=== PATIENT | male | born 1990 | race African-American/Black ===

== ENCOUNTER 2021-07-26 18:29 | Emergency (ER) | payer BC, OTHER ==
[~2021-07-26] VITALS: Ht 175.3 cm; Wt 130.0 kg
[~2021-07-26 18:29] MED LIST: CARB200T PO; CARB300C PO; CLON0.5T PO; FERR-63 PO; KEPP500 PO; METF-414 PO; TOP100 PO
[2021-07-26] MEDS ORDERED: LORAZEPAM 2MG/ML CPJ IV ONE (19:00)
[2021-07-26 19:44] LABS: BASOPHILS % 0.2 % (0.0-2.0); HEMATOCRIT. 38.5 % (42.0-52.0); HEMOGLOBIN. 12.5 g/dL (14.0-18.0); LYMPHOCYTES % 28.8 % (20.0-50.0); MEAN CORPUSCULAR HEMOGLOBIN 26.9 pg (28.0-32.0); MEAN CORPUSCULAR VOLUME 82.7 fL (80.0-94.0); MEAN PLATELET VOLUME 7.6 fl (7.4-10.4); MONOCYTES % 8.6 % (2.0-8.0); NEUTROPHILS % 61.4 % (40.0-76.0); PLATELET 258 x1000/uL (130-400); RED BLOOD CELL COUNT 4.66 mill/uL (4.7-6.1); RED CELL DISTRIBUTION WIDTH 15.9 % (11.6-14.6)
[2021-07-26 19:50] LABS: CHLORIDE 110 mEq/L (98-107)
[2021-07-26 19:54] LABS: ETHANOL BLOOD < 10 mg/dL
[2021-07-26 20:39] LABS: CLARITY URINE CLEAR (CLEAR); COLOR URINE YELLOW (YELLOW); KETONES URINE NEGATIVE (NEGATIVE); LEUKOCYTE ESTERASE URINE NEGATIVE (NEGATIVE); NITRITE URINE NEGATIVE (NEGATIVE); OCCULT BLOOD URINE 1+ (NEGATIVE); PH URINE 6.5 (4.5-8.0); PROTEIN URINE 1+ (NEGATIVE); UROBILINOGEN URINE 0.2 E.U./dL (0.2-1.0)
[2021-07-26 20:55] LABS: *BARBITURATES SCREEN URINE NEGATIVE (NEGATIVE); *BENZODIAZEPINES SCREEN URINE PRESUMTIVE POSITIVE (NEGATIVE); *COCAINE SCREEN URINE NEGATIVE (NEGATIVE); METHADONE URINE SCREEN NEGATIVE (NEGATIVE); OPIATES URINE SCREEN NEGATIVE (NEGATIVE)
[2021-07-26 20:56] LABS: *AMPHETAMINES SCREEN URINE NEGATIVE (NEGATIVE); CANNABINOID URINE SCREEN NEGATIVE (NEGATIVE); PHENCYCLIDINE URINE SCREEN NEGATIVE (NEGATIVE)
[2021-07-26 22:08] VITALS: BP 124/86
== END 2021-07-26 22:09 | disposition home or self-care (01) ==
LOC: ER 18:29
DX: G40.909 Epilepsy, unspecified, not intractable, without status epilepticus (principal); F84.0 Autistic disorder; R62.50 Unspecified lack of expected normal physiological development in childhood
CPT/HCPCS: 36415; 70450; 80053; 80305; 80320; 81003; 85025; 93005; 99285; J2060; G0480

== ENCOUNTER 2023-11-07 08:05 | Inpatient (IN) | payer BC, OTHER ==
[~2023-11-07] VITALS: Ht 175.3 cm; Wt 26.8 kg
[2023-11-07] MEDS: CARBAMAZEPINE 200MG TABLET PO SCH ×2 (09:00→20:16)
[2023-11-07] MEDS ORDERED: LEVETIRACETAM 1000MG PREMIX 100 ML IV ONE (09:00)
[2023-11-07] MEDS ORDERED: LORAZEPAM 2MG/ML INJ IM ONE (09:15)
[2023-11-07 11:24] LABS: BASOPHILS % 0.6 % (0.0-2.0); DIFFERENTIAL COMMENT 0; EOSINOPHILS % 0.9 % (0.0-5.0); HEMATOCRIT. 37.4 % (42.0-52.0); HEMOGLOBIN. 11.2 g/dL (14.0-18.0); LYMPHOCYTES % 43.4 % (20.0-50.0); MEAN CORPUSCULAR HEMOGLOBIN 23.9 pg (28.0-32.0); MEAN CORPUSCULAR HGB CONC 29.9 g/dL (31.0-37.0); MEAN CORPUSCULAR VOLUME 79.9 fL (80.0-94.0); MEAN PLATELET VOLUME 8.2 fl (7.4-10.4); MONOCYTES % 5.8 % (2.0-8.0); NEUTROPHILS % 49.3 % (40.0-76.0); PLATELET 252 x1000/uL (130-400); RED BLOOD CELL COUNT 4.67 mill/uL (4.7-6.1); RED CELL DISTRIBUTION WIDTH 18.6 % (11.6-14.6); WHITE BLOOD COUNT 5.4 x1000/uL (4.5-11.0)
[2023-11-07 11:37] LABS: ALANINE AMINOTRANSFERASE 11 IU/L (10-49); ALBUMIN 4.4 g/dL (3.2-4.8); ASPARTATE AMINOTRANSFERASE 25 IU/L (<34); BILIRUBIN TOTAL < 0.2 mg/dL (0.1-1.0); CALCIUM 8.8 mg/dL (8.7-10.4); CARBON DIOXIDE 18 mEq/L (21-32); CHLORIDE 113 mEq/L (98-107); CREATININE 0.8 mg/dL (0.6-1.3); GLUCOSE 75 mg/dL (70-105); POTASSIUM 5.6 mEq/L (3.5-5.1); PROTEIN TOTAL 8.4 g/dL (6.0-8.3); SODIUM 141 mEq/L (136-145); UREA NITROGEN BLOOD 18 mg/dL (9-23)
[2023-11-07 11:39] LABS: ETHANOL BLOOD < 10 mg/dL (<10)
[2023-11-07 12:36] LABS: CLARITY URINE CLEAR (CLEAR); COLOR URINE YELLOW (YELLOW); GLUCOSE URINE NEGATIVE (NEGATIVE); KETONES URINE NEGATIVE (NEGATIVE); LEUKOCYTE ESTERASE URINE NEGATIVE (NEGATIVE); NITRITE URINE NEGATIVE (NEGATIVE); OCCULT BLOOD URINE NEGATIVE (NEGATIVE); PROTEIN URINE NEGATIVE (NEGATIVE); SPECIFIC GRAVITY URINE 1.027 (1.005-1.030); UROBILINOGEN URINE 0.2 E.U./dL (0.2-1.0)
[2023-11-07 14:17] LABS: *AMPHETAMINES SCREEN URINE NEGATIVE (NEGATIVE); *BARBITURATES SCREEN URINE NEGATIVE (NEGATIVE); *BENZODIAZEPINES SCREEN URINE PRESUMPTIVE POSITIVE (NEGATIVE); *COCAINE SCREEN URINE NEGATIVE (NEGATIVE)
[2023-11-07 14:18] LABS: CANNABINOID URINE SCREEN NEGATIVE (NEGATIVE); ECSTASY MDMA SCREEN URINE NEGATIVE (NEGATIVE); METHADONE URINE SCREEN NEGATIVE (NEGATIVE); OPIATES URINE SCREEN NEGATIVE (NEGATIVE); PHENCYCLIDINE URINE SCREEN NEGATIVE (NEGATIVE)
[2023-11-07] MEDS ORDERED: GUAIFENESIN 200MG/10ML SUGAR FREE UDC PO PRN (15:45)
[2023-11-07] MEDS ORDERED: ACETAMINOPHEN 325MG TABLET PO PRN (15:45)
[2023-11-07] MEDS ORDERED: DOCUSATE SODIUM 100MG CAPSULE PO PRN (15:45)
[2023-11-07] MEDS ORDERED: LORAZEPAM 1MG TABLET PO PRN (15:45)
[2023-11-07] MEDS ORDERED: TRAMADOL 50MG TABLET PO PRN (15:45)
[2023-11-07] MEDS ORDERED: SODIUM POLYSTYRENE SULFONATE 15 G/60 ML BOT PO NR (15:45)
[2023-11-07] MEDS ORDERED: ONDANSETRON HCL 4MG/2ML INJ IV PRN (15:45)
[2023-11-07] MEDS ORDERED: NALOXONE HCL 0.4MG/ML VIAL IV PRN (16:00)
[2023-11-07 17:00] VITALS: BP 137/81; PULSE 75; RESP 18; TEMP 98.2
[2023-11-07] MEDS ORDERED: APIX5TAB MT (17:41)
[2023-11-07] MEDS ORDERED: CENO50TA PO (17:41)
[2023-11-07] MEDS: SODIUM CHLORIDE 0.45% 1,000 ML IV SCH (18:38)
[2023-11-07] MEDS ORDERED: CLONAZEPAM 0.5MG TABLET PO SCH (19:00)
[2023-11-07] MEDS ORDERED: CLOB20TA15 PO (19:28)
[2023-11-07 20:00] VITALS: BP 144/90; PULSE 70; RESP 20; TEMP 98.4
[2023-11-07] MEDS: LEVETIRACETAM 500MG TABLET PO SCH (20:15)
[2023-11-07] MEDS: APIXABAN 5 MG TABLET PO SCH (20:15)
[2023-11-07] MEDS: FERROUS SULFATE 325MG TABLET PO SCH (20:16)
[2023-11-07] MEDS: METFORMIN HCL 500MG TABLET PO SCH (20:17)
[2023-11-07] MEDS: TOPIRAMATE 25MG TABLET PO SCH (23:03)
[2023-11-07] MEDS: TOPIRAMATE 100MG TABLET PO SCH (23:03)
[2023-11-08] VITALS: BP 149/95; PULSE 79; RESP 18; TEMP 97.3
[2023-11-08 01:38] LABS: CREATINE KINASE 57 IU/L (46-171)
[2023-11-08 04:00] VITALS: BP 141/91; PULSE 71; RESP 20; TEMP 97
[2023-11-08] MEDS: SODIUM CHLORIDE 0.45% 1,000 ML IV SCH ×2 (05:28→18:25)
[2023-11-08 07:59] LABS: ALANINE AMINOTRANSFERASE 9 IU/L (10-49); ASPARTATE AMINOTRANSFERASE 16 IU/L (<34); BILIRUBIN TOTAL 0.3 mg/dL (0.1-1.0); CALCIUM 8.8 mg/dL (8.7-10.4); CARBON DIOXIDE 24 mEq/L (21-32); CHLORIDE 106 mEq/L (98-107); CHOLESTEROL 217 mg/dL (<200); CREATINE KINASE 45 IU/L (46-171); CREATININE 0.9 mg/dL (0.6-1.3); GLUCOSE 80 mg/dL (70-105); HDL CHOLESTEROL 39 mg/dL (>55); LDL CHOLESTEROL 147 mg/dL (5-100); POTASSIUM 4.1 mEq/L (3.5-5.1); PROTEIN TOTAL 7.3 g/dL (6.0-8.3); SODIUM 140 mEq/L (136-145); TRIGLYCERIDE 74 mg/dL (0-150); UREA NITROGEN BLOOD 13 mg/dL (9-23)
[2023-11-08 08:00] VITALS: BP 130/82; PULSE 71; RESP 20; TEMP 97.9
[2023-11-08] MEDS: FERROUS SULFATE 325MG TABLET PO SCH (09:00)
[2023-11-08] MEDS ORDERED: CLOBAZAM 20 MG PO SCH (09:00)
[2023-11-08] MEDS: TOPIRAMATE 100MG TABLET PO SCH ×2 (09:27→18:21)
[2023-11-08] MEDS: TOPIRAMATE 25MG TABLET PO SCH ×2 (09:27→18:20)
[2023-11-08] MEDS: LEVETIRACETAM 500MG TABLET PO SCH ×2 (09:28→18:16)
[2023-11-08] MEDS: METFORMIN HCL 500MG TABLET PO SCH ×2 (09:28→18:17)
[2023-11-08] MEDS: APIXABAN 5 MG TABLET PO SCH ×2 (09:29→18:17)
[2023-11-08] MEDS: CARBAMAZEPINE 200MG TABLET PO SCH ×2 (09:29→18:17)
[2023-11-08 10:11] LABS: BASOPHILS % 0.2 % (0.0-2.0); DIFFERENTIAL COMMENT 0; EOSINOPHILS % 0.7 % (0.0-5.0); HEMATOCRIT. 33.5 % (42.0-52.0); HEMOGLOBIN. 10.6 g/dL (14.0-18.0); LYMPHOCYTES % 47.1 % (20.0-50.0); MEAN CORPUSCULAR HEMOGLOBIN 24.5 pg (28.0-32.0); MEAN CORPUSCULAR HGB CONC 31.7 g/dL (31.0-37.0); MEAN CORPUSCULAR VOLUME 77.2 fL (80.0-94.0); MEAN PLATELET VOLUME 8.1 fl (7.4-10.4); MONOCYTES % 8.7 % (2.0-8.0); NEUTROPHILS % 43.3 % (40.0-76.0); PLATELET 265 x1000/uL (130-400); RED BLOOD CELL COUNT 4.33 mill/uL (4.7-6.1); RED CELL DISTRIBUTION WIDTH 17.9 % (11.6-14.6); WHITE BLOOD COUNT 5.1 x1000/uL (4.5-11.0)
[2023-11-08 12:00] VITALS: BP 117/95; PULSE 83; RESP 20; TEMP 97.8
[2023-11-08 16:00] VITALS: BP 130/82; PULSE 76; RESP 20; TEMP 97.8
[2023-11-08] MEDS ORDERED: CARB300C9 PO (16:44)
[2023-11-08] MEDS ORDERED: FERR325T6 PO (16:46)
[2023-11-08] MEDS ORDERED: QUET25TA36 PO (16:48)
[2023-11-08] MEDS ORDERED: CHOL-36 PO (17:01)
[2023-11-08] MEDS ORDERED: MUPI22OI2 TOP (17:01)
[2023-11-08] MEDS ORDERED: FAMO20TA8 PO (17:01)
[2023-11-08] MEDS ORDERED: MIDA5SPR NAS (17:01)
[2023-11-08] MEDS ORDERED: ALBU6.7H15 INH (17:01)
[2023-11-08] MEDS ORDERED: CARBAMAZEPINE PO SCH (18:00)
[2023-11-08] MEDS: CENOBAMATE 100 MG PO SCH (18:22)
[2023-11-08 20:00] VITALS: BP 116/78; PULSE 72; RESP 18; TEMP 98
[2023-11-09] VITALS: BP 118/72; PULSE 70; RESP 18; TEMP 98.2
[2023-11-09 04:00] VITALS: BP 121/37; PULSE 68; RESP 18; TEMP 96.6
[2023-11-09 08:00] VITALS: BP 151/77; PULSE 68; RESP 16; TEMP 96.3
[2023-11-09] MEDS: SODIUM CHLORIDE 0.45% 1,000 ML IV SCH ×2 (08:12→21:05)
[2023-11-09] MEDS: METFORMIN HCL 500MG TABLET PO SCH ×2 (08:13→17:34)
[2023-11-09] MEDS: APIXABAN 5 MG TABLET PO SCH ×2 (08:13→17:33)
[2023-11-09] MEDS: FERROUS SULFATE 325MG TABLET PO SCH (08:13)
[2023-11-09] MEDS: LEVETIRACETAM 500MG TABLET PO SCH ×2 (08:13→17:34)
[2023-11-09] MEDS: TOPIRAMATE 100MG TABLET PO SCH ×2 (08:14→17:35)
[2023-11-09] MEDS: TOPIRAMATE 25MG TABLET PO SCH ×2 (08:14→17:34)
[2023-11-09] MEDS: CARBAMAZEPINE 200MG TABLET PO SCH ×2 (08:15→17:35)
[2023-11-09 12:00] VITALS: BP 141/86; PULSE 72; RESP 16; TEMP 96.1
[2023-11-09] MEDS: CENOBAMATE 100 MG PO SCH (13:15)
[2023-11-09 16:00] VITALS: BP 132/84; PULSE 78; RESP 16; TEMP 96
[2023-11-09] MEDS: CARBAMAZEPINE 100MG TABLET CHEW PO SCH (17:35)
[2023-11-09 20:00] VITALS: BP 154/104; PULSE 75; RESP 20; TEMP 97.1
[2023-11-10] VITALS: BP_SYST 114; BP_SYST 134; BP_DIAS 62; BP_DIAS 64; PULSE 73; PULSE 78; RESP 18; RESP 68; TEMP 97.6; TEMP 98.9
[2023-11-10 04:00] VITALS: BP 153/74; PULSE 87; RESP 18; TEMP 98.4
[2023-11-10 08:00] VITALS: BP 126/75; PULSE 60; RESP 16; TEMP 96.1
[2023-11-10] MEDS: TOPIRAMATE 100MG TABLET PO SCH ×2 (09:01→17:17)
[2023-11-10] MEDS: LEVETIRACETAM 500MG TABLET PO SCH ×2 (09:01→17:17)
[2023-11-10] MEDS: CARBAMAZEPINE 200MG TABLET PO SCH ×2 (09:02→17:16)
[2023-11-10] MEDS: METFORMIN HCL 500MG TABLET PO SCH ×2 (09:02→17:18)
[2023-11-10] MEDS: FERROUS SULFATE 325MG TABLET PO SCH (09:02)
[2023-11-10] MEDS: APIXABAN 5 MG TABLET PO SCH ×2 (09:02→17:18)
[2023-11-10] MEDS: TOPIRAMATE 25MG TABLET PO SCH ×2 (09:03→17:17)
[2023-11-10] MEDS: SODIUM CHLORIDE 0.45% 1,000 ML IV SCH (10:25)
[2023-11-10 12:00] VITALS: BP 146/79; PULSE 74; RESP 18; TEMP 98.1
[2023-11-10 15:15] VITALS: BP 145/79; PULSE 74; TEMP 98.1; O2SAT 98
[2023-11-10 16:00] VITALS: BP 138/83; PULSE 69; RESP 16; TEMP 96.3
[2023-11-10] MEDS: CARBAMAZEPINE 100MG TABLET CHEW PO SCH (17:16)
[2023-11-10 18:02] LABS: CARBAMAZEPINE 15.6 ug/mL (4-12)
== END 2023-11-10 20:05 | disposition home health service (06) | DRG 101 ==
LOC: ER 08:17 → EDBEDREQ 11:57 → 8WST 13:02 → EDBEDREQTM 13:04 → EDBEDREQ 13:04
PROVIDERS: ADMIT Hospitalist; ATTEND Hospitalist
PROC: 4A00X4Z Measurement of Central Nervous Electrical Activity, External Approach (ICD-10-PCS; principal; 2023-11-09)
DX: G40.909 Epilepsy, unspecified, not intractable, without status epilepticus (principal); F84.0 Autistic disorder; F72 Severe intellectual disabilities; I10 Essential (primary) hypertension; E78.5 Hyperlipidemia, unspecified; E66.01 Morbid (severe) obesity due to excess calories; Z68.39 Body mass index [BMI] 39.0-39.9, adult; Z86.711 Personal history of pulmonary embolism; Z79.01 Long term (current) use of anticoagulants; Z79.899 Other long term (current) drug therapy
CPT/HCPCS: 36415; 71045; 80053; 80061; 80156; 80305; 80320; 81003; 82550; 83735; 85025; 95816; 97116; 97162; 97166; 99285; C1893; J1953; J2060; G0480